=== PATIENT | female | born 1990 | race Asian ===

== ENCOUNTER 2018-05-30 08:42 | Inpatient (IN) | payer MEDICAID, SELFPAY ==
[~2018-05-30] VITALS: Ht 156 cm; Wt 54.0 kg
[2018-05-30] MEDS ORDERED: OXYTOCIN/0.9 % SODIUM CHLORIDE 1,000 ML IV SCH ×2 (09:02→13:34)
[2018-05-30] MEDS ORDERED: LR 1,000 ML IV SCH (09:02)
[2018-05-30] MEDS ORDERED: LR 1,000 ML IV ONE (09:02)
[2018-05-30] MEDS ORDERED: NALBUPHINE HCL 10 MG/ML AMP IVP PRN (09:15)
[2018-05-30] MEDS ORDERED: AMPICILLIN SODIUM 2 GM in NS 100 ML IV ONE (09:15)
[2018-05-30] MEDS ORDERED: TERBUTALINE SULFATE 1 MG/ML VIAL SUBCUT ONE (09:15)
[2018-05-30 09:47] LABS: BASOPHILS # (AUTO) 0.1 K/uL (0.0-0.2); BASOPHILS % (AUTO) 0.7 % (0.0-2.0); EOSINOPHILS % (AUTO) 0.3 % (0.0-4.0); HEMATOCRIT 41.5 % (36-48); LYMPHOCYTES # (AUTO) 1.4 K/uL (1.0-5.5); LYMPHOCYTES % (AUTO) 16.1 % (20.5-51.5); MEAN CORPUSCULAR HEMOGLOBIN 33 pg (27-31); MEAN CORPUSCULAR HGB CONC 34 % (32-36); MEAN CORPUSCULAR VOLUME 96 fL (79.0-98.0); MONOCYTES # (AUTO) 0.4 K/uL (0.0-1.0); MONOCYTES % (AUTO) 4.5 % (1.7-9.3); NEUTROPHILS # (AUTO) 6.8 K/uL (1.8-7.7); NEUTROPHILS % (AUTO) 78.4 % (40.0-70.0); PLATELET COUNT (AUTO) 191 K/uL (130-430); RED BLOOD CELL COUNT(AUTO) 4.31 MIL/uL (4.2-6.2); RED CELL DISTRIBUTION WIDTH 13.9 % (9.0-15.0); WHITE BLOOD COUNT (AUTO) 8.7 K/uL (4.8-10.8)
[2018-05-30] MEDS ORDERED: FENT2mCg/mL-ROPIVA0.2%/NS EPID 150 ML EP SCH (10:40)
[2018-05-30] MEDS ORDERED: fentaNYL CITRATE/PF 100 MCG/2 ML AMP ONE (10:40)
[2018-05-30] MEDS ORDERED: ROPIVACAINE 0.2% 100 ML ONE (10:41)
[2018-05-30] MEDS ORDERED: LIDOCAINE PF 1% 30ML(POUR BTL) INJ ONE (12:00)
[2018-05-30] MEDS ORDERED: MINERAL OIL 30 ML UDC PO ONE (12:00)
[2018-05-30] MEDS ORDERED: OXYTOCIN/0.9 % SODIUM CHLORIDE 1,000 ML IV ONE (13:34)
[2018-05-30] MEDS ORDERED: ANUSOL 1 EA SUPP.RECT (PREPARATION H) RC PRN (13:45)
[2018-05-30] MEDS ORDERED: SENNOSIDES/DOCUSATE SODIUM 1 TAB TABLET(SENOKOT-S) PO PRN (13:45)
[2018-05-30] MEDS ORDERED: HYDROCORTISONE 0.5%, 28.35 GM TOPICAL CREAM TP PRN (13:45)
[2018-05-30] MEDS ORDERED: ACETAMINOPHEN 325 MG TABLET PO PRN (13:45)
[2018-05-30] MEDS ORDERED: WITCH HAZEL LEAF 1 MED.PAD MED.PAD TP PRN (13:45)
[2018-05-30] MEDS ORDERED: METHYLERGONOVINE MALEATE 0.2 MG TABLET PO PRN (13:45)
[2018-05-30] MEDS ORDERED: OXYCODONE/ACETAMINOPHEN 5-325 TABLET PO PRN ×2 (13:45)
[2018-05-30] MEDS ORDERED: LANOLIN 7 GM OINT. TP PRN (13:45)
[2018-05-30] MEDS ORDERED: DERMOPLAST SPRAY TP PRN (13:45)
[2018-05-30] MEDS ORDERED: AMPICILLIN SODIUM 1 GM in NS 50 ML IV SCH (14:00)
[2018-05-30 14:53] VITALS: BP_SYST 111
[2018-05-30] MEDS: IBUPROFEN 600 MG TABLET PO SCH (17:54)
[2018-05-31] MEDS: IBUPROFEN 600 MG TABLET PO SCH ×4 (06:00→23:58)
[2018-05-31 07:25] LABS: BASOPHILS % (AUTO) 0.2 % (0.0-2.0); EOSINOPHILS % (AUTO) 0.2 % (0.0-4.0); HEMATOCRIT 30.9 % (36-48); HEMOGLOBIN 10.5 g/dL (12.0-16.0); LYMPHOCYTES # (AUTO) 1.6 K/uL (1.0-5.5); LYMPHOCYTES % (AUTO) 13.7 % (20.5-51.5); MEAN CORPUSCULAR HEMOGLOBIN 33 pg (27-31); MEAN CORPUSCULAR HGB CONC 34 % (32-36); MEAN CORPUSCULAR VOLUME 97 fL (79.0-98.0); MONOCYTES # (AUTO) 0.6 K/uL (0.0-1.0); MONOCYTES % (AUTO) 5.2 % (1.7-9.3); NEUTROPHILS # (AUTO) 9.4 K/uL (1.8-7.7); NEUTROPHILS % (AUTO) 80.7 % (40.0-70.0); PLATELET COUNT (AUTO) 176 K/uL (130-430); RED BLOOD CELL COUNT(AUTO) 3.19 MIL/uL (4.2-6.2); RED CELL DISTRIBUTION WIDTH 13.8 % (9.0-15.0); WHITE BLOOD COUNT (AUTO) 11.6 K/uL (4.8-10.8)
[2018-05-31] MEDS: DOCUSATE SODIUM 100 MG CAPSULE PO PRN (23:14)
[2018-06-01] MEDS: IBUPROFEN 600 MG TABLET PO SCH ×2 (05:55→06:00)
[2018-06-01] MEDS: DOCUSATE SODIUM 100 MG CAPSULE PO PRN (12:22)
== END 2018-06-01 14:05 | disposition home or self-care (01) | DRG 560 ==
LOC: SPU 08:42
PROVIDERS: ADMIT Obstetrics & Gynecology; ATTEND Obstetrics & Gynecology
PROC: 3E0R3BZ Introduction of Anesthetic Agent into Spinal Canal, Percutaneous Approach (ICD-10-PCS; principal; 2018-05-30)
PROC: 10E0XZZ Delivery of Products of Conception, External Approach (ICD-10-PCS; 2018-05-30)
PROC: 00HU33Z Insertion of Infusion Device into Spinal Canal, Percutaneous Approach (ICD-10-PCS; 2018-05-30)
PROC: 0W8NXZZ Division of Female Perineum, External Approach (ICD-10-PCS; 2018-05-30)
DX: O99.824 Streptococcus B carrier state complicating childbirth (principal); B18.1 Chronic viral hepatitis B without delta-agent; O69.81X0 Labor and delivery complicated by cord around neck, without compression, not applicable or unspecified; Z3A.38 38 weeks gestation of pregnancy; Z37.0 Single live birth
CPT/HCPCS: 36415; 81002-TC; 85025; 86592; 86886; 86900; 86901; J0290; J2001; J2590; J2795; J3010; J7120